=== PATIENT | female | born 1960 | race Caucasian/White ===

== ENCOUNTER 2016-05-30 17:37 | Emergency (ER) | payer SELFPAY ==
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
--- NOTE | 2016-05-30 18:42 | ED ORDER SUMMARY ---
..... Patient: BALDEV CANCINO OrderSheet [facility] VisitID: [id number] [address] [place] [address] 55y, F Registration Date/Time: 05/30/2016 ORDER SHEET Weight: 49.8 kg (stated) Allergies: Reglan, Toradol, Zofran GENERAL ORDERS: UA-Culture if indicated Urgent (18:04 05/30/2016 EKoroleva P.A.-C) (Ack 18:10 LTapper) (18:15 KWilliams R.N.) MEDICATION ORDERS: Ciprofloxacin PO 500 mg (NOW) (18:39 05/30/2016 EKoroleva P.A.-C) (18:46 KWilliams R.N.) Percocet PO 5/325 mg (HIGH ALERT MEDICATION, NOW) (18:40 05/30/2016 EKoroleva P.A.-C) (18:47 KWilliams R.N.) IV FLUIDS: ORDER SHEET NOTES: [Electronically signed by Cierra Weaver R.N. (19:11 05/30/2016)] [Electronically signed by Gala TarangoARogelio-C (19:24 05/30/2016)] [Electronically locked/signed by Cierra Weaver R.N. (19:11 05/30/2016)]
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
--- NOTE | 2016-05-30 18:42 | ED ORDER SUMMARY ---
..... Patient: BALDEV CANCINO OrderSheet [facility] VisitID: [id number] [address] [place] [address] 55y, F Registration Date/Time: 05/30/2016 ORDER SHEET Weight: 49.8 kg (stated) Allergies: Reglan, Toradol, Zofran GENERAL ORDERS: UA-Culture if indicated Urgent (18:04 05/30/2016 EKoroleva P.A.-C) (Ack 18:10 LTapper) (18:15 KWilliams R.N.) MEDICATION ORDERS: Ciprofloxacin PO 500 mg (NOW) (18:39 05/30/2016 EKoroleva P.A.-C) (18:46 KWilliams R.N.) Percocet PO 5/325 mg (HIGH ALERT MEDICATION, NOW) (18:40 05/30/2016 EKoroleva P.A.-C) (18:47 KWilliams R.N.) IV FLUIDS: ORDER SHEET NOTES: [Electronically signed by Cierra Weaver R.N. (19:11 05/30/2016)] [Electronically signed by Gala TarangoARogelio-C (19:24 05/30/2016)] [Electronically locked/signed by Cierra Weaver R.N. (19:11 05/30/2016)]
--- NOTE | 2016-05-30 18:42 | ED CLINICAL REPORT ---
Clinical Report - Physicians/Mid Levels [facility] [address] [place] [address] 05/30/2016 17:37 Patient: BALDEV CANCINO Time Seen: 18:23 May 30 2016. Arrived- By private vehicle. HISTORY OF PRESENT ILLNESS Chief Complaint: FLANK PAIN. This started just prior to arrival 2 PM and is still present. It is described as located in the right flank. No nausea or vomiting. (noted foul smelling urine in urostomy, as she had such placed due to difficulty voiding in the past, also has had h/o nephrolithiasis. No emsis/ diarrhea. On chorninc pain meds for renal pain. has urology specialist. No recent trauma. No sob/ cough/ chest graham.). REVIEW OF SYSTEMS No constipation, black stools, difficulty with urination, pain with urination or urinary frequency. No headache or blurred vision. All systems otherwise negative, except as recorded above. ADDITIONAL NOTES The nursing notes have been reviewed. PHYSICAL EXAM Vital Signs: 05/30/2016 19:09 BP: 106/54. HR: 63. RR: 17. O2 saturation: 99%. Temp: 97.9 F. Appearance: Alert. ENT: Nose normal. Pharynx normal. Neck: Normal inspection. CVS: Normal heart rate and rhythm. Respiratory: No respiratory distress. Breath sounds normal. No accessory muscle use. Abdomen: Soft and nontender. Bowel sounds normal. No abdominal tenderness. The bowel sounds are not abnormal. (urostomy in place). Back: No CVA tenderness. Neuro: Oriented X 3. No motor deficit. LABS, X-RAYS, AND EKG Laboratory Tests: UA-Culture if indicated: (FRANCISCO: 05/30/2016 18:05) ( MsgRcvd 05/30/2016 18:38) Final results Test Result Flag Units (Reference) URINE COLOR YELLOW URINE APPEARANCE CLEAR URINE GLUCOSE NEGATIVE (NEGATIVE) URINE BILIRUBIN NEGATIVE (NEGATIVE) URINE KETONE NEGATIVE (NEGATIVE) URINE SPECIFIC GRAVITY 1.010 (1.010-1.030) URINE PH 7.0 (5.0-8.0) URINE PROTEIN NEGATIVE (NEGATIVE) URINE UROBILINOGEN 0.2 EU/dL (0.2-1.0) URINE NITRITE POSITIVE (NEGATIVE) URINE BLOOD NEGATIVE (NEGATIVE) URINE LEUK ESTERASE POSITIVE (NEGATIVE) URINE RBC NONE SEEN rbc/hpf (0-1) URINE WBC 10-15 wbc/hpf (0-1) URINE EPITHELIAL CELLS 0-1 EPI/hpf (0-5) URINE BACTERIA MANY (4+) (NONE SEEN) URINE COMMENT CULTURE INDICATED URINE CULTURES ARE SET-UP BASED ON THE FOLLOWING CRITERIA:POSITIVE NITRITEPOSITIVE LEUKOCYTE ESTERASEGREATER THAN 10 WHITE BLOOD CELLSMODERATE (2+) OR GREATER BACTERIA . PROGRESS AND PROCEDURES Course of Care: signs of infection, given pt with urostomy and flank pain will start on cipro. Pt stable Afebrile. Noramcardic, early onset of sx, to be treated with abx. pt with prior use of cipro. Has good f/u. 05/30/2016 19:09 BP: 106/54. HR: 63. RR: 17. O2 saturation: 99%. Temp: 97.9 F. Patient is stable. Physical exam findings are improved. Patient/family counseled. Disposition: Discharged. CLINICAL IMPRESSION Acute pyelonephritis INSTRUCTIONS Drink plenty of fluids. Prescription Medications: Cipro 500 mg: take 1 tab orally every 12 hours for 7 days. No refills. Substitution is permissible. Follow-up: Follow up with a specialist in three days. (Electronically signed by Gala Tarango P.A.-C 05/30/2016 19:24)
--- NOTE | 2016-05-30 18:42 | ED CLINICAL REPORT ---
Clinical Report - Physicians/Mid Levels [facility] [address] [place] [address] 05/30/2016 17:37 Patient: BALDEV CANCINO Time Seen: 18:23 May 30 2016. Arrived- By private vehicle. HISTORY OF PRESENT ILLNESS Chief Complaint: FLANK PAIN. This started just prior to arrival 2 PM and is still present. It is described as located in the right flank. No nausea or vomiting. (noted foul smelling urine in urostomy, as she had such placed due to difficulty voiding in the past, also has had h/o nephrolithiasis. No emsis/ diarrhea. On chorninc pain meds for renal pain. has urology specialist. No recent trauma. No sob/ cough/ chest graham.). REVIEW OF SYSTEMS No constipation, black stools, difficulty with urination, pain with urination or urinary frequency. No headache or blurred vision. All systems otherwise negative, except as recorded above. ADDITIONAL NOTES The nursing notes have been reviewed. PHYSICAL EXAM Vital Signs: 05/30/2016 19:09 BP: 106/54. HR: 63. RR: 17. O2 saturation: 99%. Temp: 97.9 F. Appearance: Alert. ENT: Nose normal. Pharynx normal. Neck: Normal inspection. CVS: Normal heart rate and rhythm. Respiratory: No respiratory distress. Breath sounds normal. No accessory muscle use. Abdomen: Soft and nontender. Bowel sounds normal. No abdominal tenderness. The bowel sounds are not abnormal. (urostomy in place). Back: No CVA tenderness. Neuro: Oriented X 3. No motor deficit. LABS, X-RAYS, AND EKG Laboratory Tests: UA-Culture if indicated: (FRANCISCO: 05/30/2016 18:05) ( MsgRcvd 05/30/2016 18:38) Final results Test Result Flag Units (Reference) URINE COLOR YELLOW URINE APPEARANCE CLEAR URINE GLUCOSE NEGATIVE (NEGATIVE) URINE BILIRUBIN NEGATIVE (NEGATIVE) URINE KETONE NEGATIVE (NEGATIVE) URINE SPECIFIC GRAVITY 1.010 (1.010-1.030) URINE PH 7.0 (5.0-8.0) URINE PROTEIN NEGATIVE (NEGATIVE) URINE UROBILINOGEN 0.2 EU/dL (0.2-1.0) URINE NITRITE POSITIVE (NEGATIVE) URINE BLOOD NEGATIVE (NEGATIVE) URINE LEUK ESTERASE POSITIVE (NEGATIVE) URINE RBC NONE SEEN rbc/hpf (0-1) URINE WBC 10-15 wbc/hpf (0-1) URINE EPITHELIAL CELLS 0-1 EPI/hpf (0-5) URINE BACTERIA MANY (4+) (NONE SEEN) URINE COMMENT CULTURE INDICATED URINE CULTURES ARE SET-UP BASED ON THE FOLLOWING CRITERIA:POSITIVE NITRITEPOSITIVE LEUKOCYTE ESTERASEGREATER THAN 10 WHITE BLOOD CELLSMODERATE (2+) OR GREATER BACTERIA . PROGRESS AND PROCEDURES Course of Care: signs of infection, given pt with urostomy and flank pain will start on cipro. Pt stable Afebrile. Noramcardic, early onset of sx, to be treated with abx. pt with prior use of cipro. Has good f/u. 05/30/2016 19:09 BP: 106/54. HR: 63. RR: 17. O2 saturation: 99%. Temp: 97.9 F. Patient is stable. Physical exam findings are improved. Patient/family counseled. Disposition: Discharged. CLINICAL IMPRESSION Acute pyelonephritis INSTRUCTIONS Drink plenty of fluids. Prescription Medications: Cipro 500 mg: take 1 tab orally every 12 hours for 7 days. No refills. Substitution is permissible. Follow-up: Follow up with a specialist in three days. (Electronically signed by Gala Tarango P.A.-C 05/30/2016 19:24)
--- NOTE | 2016-05-30 19:24 | ED DISCHARGE INSTRUCTIONS ---
Patient: BALDEV CANCINO General Instructions [facility] VisitID: [id number] [place] [address] 55y, F Registration Date/Time: 05/30/2016 Acute pyelonephritis INSTRUCTIONS Drink plenty of fluids. Prescription Medications: Cipro 500 mg: take 1 tab orally every 12 hours for 7 days. No refills. Substitution is permissible. Follow-up: Follow up with a specialist in three days. ADDITIONAL INFORMATION Kidney Infection [Adult, Female] An infection of the kidney is also called "pyelonephritis". It usually starts as a bladder infection ("cystitis") which spreads to the kidneys. Pyelonephritis is more serious than a bladder infection. It can cause severe illness if not treated properly. The usual symptoms include an aching pain in the back, side or lower abdomen. Other symptoms may include fever, chills, nausea, vomiting, an urge to urinate and a burning sensation when passing urine. Home Care: Stay home from work or school. Rest in bed until your fever breaks and you are feeling better. Drink lots of fluid (at least 6-8 glasses a day, unless you must restrict fluids for other medical reasons). This will force the medicine into your urinary system and flush the bacteria out of your body. Avoid sexual intercourse until you have finished all of your medicine and your symptoms have gone away. Avoid caffeine, alcohol and spicy foods which may irritate the kidney and bladder. You may use acetaminophen (Tylenol) or ibuprofen (Motrin, Advil) to control pain, unless another pain medicine was prescribed. [NOTE: If you have chronic liver or kidney disease or ever had a stomach ulcer or GI bleeding, talk with your doctor before using these medicines.] Follow Up with your doctor or as advised by our staff for a repeat urine test in 10 days. This will ensure that your infection is fully cleared. [NOTE: If you had an X-ray or CT scan, it will be reviewed by a specialist. You will be notified of any new findings that may affect your care.] Get Prompt Medical Attention if any of the following occur: Fever over 100.4F (38.0C) after 48 hours of treatment No improvement by the third day of treatment Increasing back or abdominal pain Repeated vomiting or inability to take oral medicine Weakness, dizziness or fainting Ciprofloxacin Hydrochloride Oral tablet What is this medicine? CIPROFLOXACIN (sip anthony FLOX a sin) is a quinolone antibiotic. It is used to treat certain kinds of bacterial infections. It will not work for colds, flu, or other viral infections. How should I use this medicine? Take this medicine by mouth with a glass of water. Follow the directions on the prescription label. Take your medicine at regular intervals. Do not take your medicine more often than directed. Take all of your medicine as directed even if you think your are better. Do not skip doses or stop your medicine early. You can take this medicine with food or on an empty stomach. It can be taken with a meal that contains dairy or calcium, but do not take it alone with a dairy product, like milk or yogurt or calcium-fortified juice. A special MedGuide will be given to you by the pharmacist with each prescription and refill. Be sure to read this information carefully each time. Talk to your athletic instructor regarding the use of this medicine in children. Special care may be needed. What side effects may I notice from receiving this medicine? Side effects that you should report to your doctor or health client care coordinator as soon as possible: - allergic reactions like skin rash, itching or hives, swelling of the face, lips, or tongue - breathing problems - confusion, nightmares or hallucinations - feeling faint or lightheaded, falls - irregular heartbeat - joint, muscle or tendon pain or swelling - pain or trouble passing urine -persistent headache with or without blurred vision - redness, blistering, peeling or loosening of the skin, including inside the mouth - seizure - unusual pain, numbness, tingling, or weakness Side effects that usually do not require medical attention (report to your doctor or health client care coordinator if they continue or are bothersome): - diarrhea - nausea or stomach upset - white patches or sores in the mouth What may interact with this medicine? Do not take this medicine with any of the following medications: cisapride droperidol terfenadine tizanidine This medicine may also interact with the following medications: antacids caffeine cyclosporin didanosine (ddI) buffered tablets or powder medicines for diabetes medicines for inflammation like ibuprofen, naproxen methotrexate multivitamins omeprazole phenytoin probenecid sucralfate theophylline warfarin What if I miss a dose? If you miss a dose, take it as soon as you can. If it is almost time for your next dose, take only that dose. Do not take double or extra doses. Where should I keep my medicine? Keep out of the reach of children. Store at room temperature below 30 degrees C (86 degrees F). Keep container tightly closed. Throw away any unused medicine after the expiration date. What should I tell my health care provider before I take this medicine? They need to know if you have any of these conditions: -bone problems -cerebral disease -joint problems -irregular heartbeat -kidney disease -liver disease -myasthenia gravis -seizure disorder -tendon problems -an unusual or allergic reaction to ciprofloxacin, other antibiotics or medicines, foods, dyes, or preservatives - or trying to get -breast-feeding What should I watch for while using this medicine? Tell your doctor or health client care coordinator if your symptoms do not improve. Do not treat diarrhea with over the counter products. Contact your doctor if you have diarrhea that lasts more than 2 days or if it is severe and watery. You may get drowsy or dizzy. Do not drive, use machinery, or do anything that needs mental alertness until you know how this medicine affects you. Do not stand or sit up quickly, especially if you are an older patient. This reduces the risk of dizzy or fainting spells. This medicine can make you more sensitive to the sun. Keep out of the sun. If you cannot avoid being in the sun, wear protective clothing and use sunscreen. Do not use sun lamps or tanning beds/booths. Avoid antacids, aluminum, calcium, iron, magnesium, and zinc products for 6 hours before and 2 hours after taking a dose of this medicine. You have been given the following additional information: Pyelonephritis, Female (Adult) Ciprofloxacin Hydrochloride Oral tablet (Electronically signed by Gala Tarango P.A.-C 05/30/2016 19:24)
--- NOTE | 2016-05-30 19:24 | ED MED RECONCILIATION SUMMARY ---
Patient: BALDEV CANCINO Medication Reconciliation Report [facility] VisitID: [id number] [address] [place] [address] 55y, F Registration Date/Time: 05/30/2016 Weight: 49.8 kg Height/Length: 60 in. BMI: 21.4 ALLERGIES: Reglan, Toradol, Zofran The patient's Home Medications are listed below: THE FOLLOWING MEDICATIONS NEED TO BE RECONCILED: MS Contin Oral 30 mg, 2x a day The source(s) of the original Home Medication information: Not obtained. The following Medications were given to the patient in the Emergency Department: Ciprofloxacin [PO] PO 500 mg, administered: 05/30/2016 6:45:00 PM Percocet [PO] PO 1 tab, administered: 05/30/2016 6:45:00 PM The following Medications were prescribed to the patient: Cipro 500 mg: take 1 tab orally every 12 hours for 7 days. No refills. Substitution is permissible. -- Gala Tarango, PRogelioASofieC
--- NOTE | 2016-05-30 19:24 | ED DISCHARGE INSTRUCTIONS ---
Patient: BALDEV CANCINO General Instructions [facility] VisitID: [id number] [place] [address] 55y, F Registration Date/Time: 05/30/2016 Acute pyelonephritis INSTRUCTIONS Drink plenty of fluids. Prescription Medications: Cipro 500 mg: take 1 tab orally every 12 hours for 7 days. No refills. Substitution is permissible. Follow-up: Follow up with a specialist in three days. ADDITIONAL INFORMATION Kidney Infection [Adult, Female] An infection of the kidney is also called "pyelonephritis". It usually starts as a bladder infection ("cystitis") which spreads to the kidneys. Pyelonephritis is more serious than a bladder infection. It can cause severe illness if not treated properly. The usual symptoms include an aching pain in the back, side or lower abdomen. Other symptoms may include fever, chills, nausea, vomiting, an urge to urinate and a burning sensation when passing urine. Home Care: Stay home from work or school. Rest in bed until your fever breaks and you are feeling better. Drink lots of fluid (at least 6-8 glasses a day, unless you must restrict fluids for other medical reasons). This will force the medicine into your urinary system and flush the bacteria out of your body. Avoid sexual intercourse until you have finished all of your medicine and your symptoms have gone away. Avoid caffeine, alcohol and spicy foods which may irritate the kidney and bladder. You may use acetaminophen (Tylenol) or ibuprofen (Motrin, Advil) to control pain, unless another pain medicine was prescribed. [NOTE: If you have chronic liver or kidney disease or ever had a stomach ulcer or GI bleeding, talk with your doctor before using these medicines.] Follow Up with your doctor or as advised by our staff for a repeat urine test in 10 days. This will ensure that your infection is fully cleared. [NOTE: If you had an X-ray or CT scan, it will be reviewed by a specialist. You will be notified of any new findings that may affect your care.] Get Prompt Medical Attention if any of the following occur: Fever over 100.4F (38.0C) after 48 hours of treatment No improvement by the third day of treatment Increasing back or abdominal pain Repeated vomiting or inability to take oral medicine Weakness, dizziness or fainting Ciprofloxacin Hydrochloride Oral tablet What is this medicine? CIPROFLOXACIN (sip anthony FLOX a sin) is a quinolone antibiotic. It is used to treat certain kinds of bacterial infections. It will not work for colds, flu, or other viral infections. How should I use this medicine? Take this medicine by mouth with a glass of water. Follow the directions on the prescription label. Take your medicine at regular intervals. Do not take your medicine more often than directed. Take all of your medicine as directed even if you think your are better. Do not skip doses or stop your medicine early. You can take this medicine with food or on an empty stomach. It can be taken with a meal that contains dairy or calcium, but do not take it alone with a dairy product, like milk or yogurt or calcium-fortified juice. A special MedGuide will be given to you by the pharmacist with each prescription and refill. Be sure to read this information carefully each time. Talk to your wholesale parts salesperson regarding the use of this medicine in children. Special care may be needed. What side effects may I notice from receiving this medicine? Side effects that you should report to your doctor or health care tech as soon as possible: - allergic reactions like skin rash, itching or hives, swelling of the face, lips, or tongue - breathing problems - confusion, nightmares or hallucinations - feeling faint or lightheaded, falls - irregular heartbeat - joint, muscle or tendon pain or swelling - pain or trouble passing urine -persistent headache with or without blurred vision - redness, blistering, peeling or loosening of the skin, including inside the mouth - seizure - unusual pain, numbness, tingling, or weakness Side effects that usually do not require medical attention (report to your doctor or health care tech if they continue or are bothersome): - diarrhea - nausea or stomach upset - white patches or sores in the mouth What may interact with this medicine? Do not take this medicine with any of the following medications: cisapride droperidol terfenadine tizanidine This medicine may also interact with the following medications: antacids caffeine cyclosporin didanosine (ddI) buffered tablets or powder medicines for diabetes medicines for inflammation like ibuprofen, naproxen methotrexate multivitamins omeprazole phenytoin probenecid sucralfate theophylline warfarin What if I miss a dose? If you miss a dose, take it as soon as you can. If it is almost time for your next dose, take only that dose. Do not take double or extra doses. Where should I keep my medicine? Keep out of the reach of children. Store at room temperature below 30 degrees C (86 degrees F). Keep container tightly closed. Throw away any unused medicine after the expiration date. What should I tell my health care provider before I take this medicine? They need to know if you have any of these conditions: -bone problems -cerebral disease -joint problems -irregular heartbeat -kidney disease -liver disease -myasthenia gravis -seizure disorder -tendon problems -an unusual or allergic reaction to ciprofloxacin, other antibiotics or medicines, foods, dyes, or preservatives - or trying to get -breast-feeding What should I watch for while using this medicine? Tell your doctor or health care tech if your symptoms do not improve. Do not treat diarrhea with over the counter products. Contact your doctor if you have diarrhea that lasts more than 2 days or if it is severe and watery. You may get drowsy or dizzy. Do not drive, use machinery, or do anything that needs mental alertness until you know how this medicine affects you. Do not stand or sit up quickly, especially if you are an older patient. This reduces the risk of dizzy or fainting spells. This medicine can make you more sensitive to the sun. Keep out of the sun. If you cannot avoid being in the sun, wear protective clothing and use sunscreen. Do not use sun lamps or tanning beds/booths. Avoid antacids, aluminum, calcium, iron, magnesium, and zinc products for 6 hours before and 2 hours after taking a dose of this medicine. You have been given the following additional information: Pyelonephritis, Female (Adult) Ciprofloxacin Hydrochloride Oral tablet (Electronically signed by Gala Tarango P.A.-C 05/30/2016 19:24)
--- NOTE | 2016-05-30 19:24 | ED MAR SUMMARY ---
..... Medication Administration Record [facility] [address] [place] [address] Patient: BALDEV CANCINO Visit ID: [id number] 55y, F Weight: 49.8 kg Height/Length: 60 in BMI: 21.4 ALLERGIES: Reglan, Toradol, Zofran Given 18:45 05/30/2016 Cierra Weaver R.N. Medication Administered: CIPROFLOXACIN [PO] (CIPROFLOXACIN), Dose: 500 mg Tablets PO. Medication Ordered: Ciprofloxacin PO 500 mg (NOW). Given 18:45 05/30/2016 Cierra Weaver R.N. Medication Administered: PERCOCET [PO] (OXYCODONE-ACETAMINOPHEN), Dose: 1 tab 5/325 mg Tablets PO. Medication Ordered: Percocet PO 5/325 mg (HIGH ALERT MEDICATION, NOW).
--- NOTE | 2016-05-30 19:24 | ED MED RECONCILIATION SUMMARY ---
Patient: BALDEV CANCINO Medication Reconciliation Report [facility] VisitID: [id number] [address] [place] [address] 55y, F Registration Date/Time: 05/30/2016 Weight: 49.8 kg Height/Length: 60 in. BMI: 21.4 ALLERGIES: Reglan, Toradol, Zofran The patient's Home Medications are listed below: THE FOLLOWING MEDICATIONS NEED TO BE RECONCILED: MS Contin Oral 30 mg, 2x a day The source(s) of the original Home Medication information: Not obtained. The following Medications were given to the patient in the Emergency Department: Ciprofloxacin [PO] PO 500 mg, administered: 05/30/2016 6:45:00 PM Percocet [PO] PO 1 tab, administered: 05/30/2016 6:45:00 PM The following Medications were prescribed to the patient: Cipro 500 mg: take 1 tab orally every 12 hours for 7 days. No refills. Substitution is permissible. -- Gala Tarango, PRogelioASofieC
--- NOTE | 2016-05-30 19:24 | ED MAR SUMMARY ---
..... Medication Administration Record [facility] [address] [place] [address] Patient: BALDEV CANCINO Visit ID: [id number] 55y, F Weight: 49.8 kg Height/Length: 60 in BMI: 21.4 ALLERGIES: Reglan, Toradol, Zofran Given 18:45 05/30/2016 Cierra Weaver R.N. Medication Administered: CIPROFLOXACIN [PO] (CIPROFLOXACIN), Dose: 500 mg Tablets PO. Medication Ordered: Ciprofloxacin PO 500 mg (NOW). Given 18:45 05/30/2016 Cierra Weaver R.N. Medication Administered: PERCOCET [PO] (OXYCODONE-ACETAMINOPHEN), Dose: 1 tab 5/325 mg Tablets PO. Medication Ordered: Percocet PO 5/325 mg (HIGH ALERT MEDICATION, NOW).
== END 2016-05-30 18:59 | disposition home or self-care (01) ==
LOC: ED SRH 17:37
DX: N10 Acute pyelonephritis (principal); Z93.6 Other artificial openings of urinary tract status; Z88.8 Allergy status to other drugs, medicaments and biological substances
CPT/HCPCS: 90004; 90148; 90469

== ENCOUNTER 2016-06-22 12:18 | Emergency (ER) | payer SELFPAY ==
--- NOTE | 2016-06-22 13:39 | DIAGNOSTIC IMAGING REPORT ---
PROCEDURE: XR LUMBAR SPINE 2 OR 3 VIEWS INDICATION: LOWER BACK PAIN TECHNIQUE: Three views. COMPARISON: Abdominal CT 07/04/2015 FINDINGS: Osseous structures and disc spaces are normal. No evidence of an acute process or fracture. IMPRESSION: 1. Negative lumbar spine. 2. Results were called to Dr. La at 01:35 Pm
--- NOTE | 2016-06-22 15:57 | ED NURSING NOTES ---
Clinical Report - Nurses [facility] [address] [place] [address] 06/22/2016 12:20 Patient: BALDEV CANCINO TRIAGE Triage time 12:28. Acuity: LEVEL 3. Chief Complaint: BACK PAIN. Alert. No acute distress. ( Pt. states she was pushing sheets under the her mattress when she felt a "pop" noise and then severe pain. Pt said, "I couldn't seen and everything turned white," after she heard the pop in her back.). SEPSIS SCREEN: Sepsis Screen. Negative (no infection suspected/documented). LIBAN COMA SCORE: [place] Coma Scale: 15- eyes open spontaneously (4); best verbal response- oriented x 4 (5); best motor response- obeys commands (6). --12:34 Sarah Gilman R.N. 12:28 06/22/16. BP: 144/66. HR: 73. RR: 22. O2 saturation: 99%. Temp: 98.7 F. Pain level now 10/10. --12:34 Sarah Gilman R.N. Weight: 49.8 kg stated. Height/Length: 60 inches Per Patient. BMI: 21.4. --12:29 Sarah Gilman R.N. Medications Morphine 3mg x2 daily. --12:30 Sarah Gilman R.N. Vitamins/Minerals Oral. --12:30 Sarah Gilman R.N. Allergies Anti nausea medications. --12:30 Sarah Gilman R.N. History Arrived by private vehicle. Historian: patient. Accompanied by friend. Primary physician (Dr. Dan). This started today. No history of recent trauma. Occurred at home. Treatment EDGE STRIPPER: None. PAST MEDICAL HX: Immunizations: up-to-date. SOCIAL HX: Never smoker. No alcohol use or drug use. No infectious disease exposure. ABUSE ASSESSMENT: No report of abuse. NUTRITIONAL RISK ASSESSMENT: The nutritional risk assessment revealed no deficiencies. FUNCTIONAL ASSESSMENT: Functional assessment: no impairments noted. LEARNING NEEDS ASSESSMENT: The learning needs assessment revealed no barriers. --12:34 Sarah Gilman R.N. PROBLEMS: Chronic Kidney Pain. Sprain. Renal Colic. Cystitis. Nephropathy. Pyelonephritis. Celiac Disease. Urinary Retention. Hypokalemia. Hypomagnesemia. Abdominal Pain. UTI - Urinary Tract Infection. --12:32 Sarah Gilman R.N. ADDITIONAL SURGERIES: Appendectomy. Cholecystectomy. Colon resection. Finger surgeries.. Hernia Repair. Hysterectomy. Oophorectomy. Salpingectomy. Urostomy. --12:32 Sarah Gilman R.N. Interventions ID band on patient. Transported via wheelchair. --12:34 Sarah Gilman R.N. PHYSICAL ASSESSMENT Ambulatory to room. GENERAL / NEURO / PSYCH: Alert. Appears in no acute distress. RESPIRATORY: Respirations not labored. CVS: Capillary refill less than 2 seconds. BACK: Soft tissue tenderness in the right lower lumbar paraspinous region. --12:35 Sarah Gilman R.N. ( CMS WNL in b/l LE. Pain when ambulating.). --12:39 Sarah Gilman R.N. NURSING PROGRESS NOTES Cold pack applied. Head of bed elevated. Two patient identifiers checked. Call light placed in reach. Side rails up x 2. Bed placed in lowest position. Brakes of bed on. Patient ready for evaluation- chart flagged. --12:35 Sarah Gilman R.N. Patient transported to radiology by stretcher with tech. --13:27 Sarah Gilman R.N. 13:35 06/22/2016 Percocet (Oxycodone-Acetaminophen) PO 5/325 mg Tablets 1 tab given. Allergies verified, confirmed 5 rights and sedative warning given to the patient. --13:39 Sarah Gilman R.N. 13:35 06/22/2016 Phenergan (Promethazine HCl) PO 25 mg given. Allergies verified, confirmed 5 rights and sedative warning given to the patient. --13:39 Sarah Gilman R.N. 13:35 06/22/2016 Cyclobenzaprine PO 10 mg given. Allergies verified, confirmed 5 rights and sedative warning given to the patient. --13:39 Sarah Gilman R.N. 13:39 06/22/2016 Toradol (Ketorolac Tromethamine) IM 60 mg given. Given in the right gluteus sandi. Allergies verified and confirmed 5 rights. --13:39 Sarah Gilman R.N. 14:00 06/22/2016 Toradol IM Response: no adverse reaction the patient feels the same. --14:30 Sarah Gilman R.N. 14:38 06/22/2016 Morphine (Morphine Sulfate (PF)) IM 8 mg given. Given in the right gluteus sandi. Allergies verified, confirmed 5 rights and sedative warning given to the patient. --14:38 Sarah Gilman R.N. 14:38 06/22/16. BP: 113/57. HR: 63. RR: 16. O2 saturation: 98%. Pain level now 12/08. --14:40 Sarah Gilman R.N. 15:09 06/22/16. Care transferred and report received. --15:09 Crista Pimentel R.N. 15:20 06/22/16. BP: 119/68. HR: 56. RR: 16. O2 saturation: 100%. Temp: deferred. Pain level now: 08/08. Additional comments: First contact with pt. Pt resting quietly, states pain is better. family at bedside. --15:47 Crista Pimentel R.N. DISPOSITION / DISCHARGE 16:10. Condition at departure: improved and stable. No learning barriers present. Discharge instructions provided and reviewed with the patient. Reviewed medication(s) (PERCOCET). Patient and label cutter verbalized understanding. Written instructions provided in Polish. The patient was discharged home and accompanied by label cutter. She left the Emergency Department ambulatory and via private vehicle. [place] driving. --16:42 Crista Pimentel R.N. 16:10 06/22/16. BP: 116/64. HR: 62. RR: 18. O2 saturation: 97% on room air. Temp: deferred. Pain level now: 08/08. --16:42 Cirsta Pimentel R.N. Locked/Released at 06/22/2016 16:43 by Crista Pimentel R.N.
--- NOTE | 2016-06-22 15:57 | ED CLINICAL REPORT ---
Clinical Report - Physicians/Mid Levels [facility] [address] [place] [address] 06/22/2016 12:20 Patient: BALDEV CANCINO Arrived- By private vehicle. Historian- patient. HISTORY OF PRESENT ILLNESS Chief Complaint: BACK PAIN. It is described as being severe and radiating (right posterior thigh). The quality is noted to be sharp and aching. Onset was today and it is still present (staying the same). It was abrupt in onset and has been constant but is not gone now. No bladder dysfunction, bowel dysfunction, sensory loss or motor loss. Additional history - Patient states she had a history of a bulging disc. no fever, hx of IV drug use, or saddle anesthesia. Patient notes the possibility of an injury but denies injury to the head or neck. Mechanism of injury- (pushing a mattress cover on the bed). (home). No other injury. Similar symptoms previously: None. Recent medical care: Not recently seen/assessed. REVIEW OF SYSTEMS No fever, difficulty with urination, skin rash, difficulty breathing or chest pain. No abdominal pain. All systems otherwise negative, except as recorded above. PAST HISTORY See nurses notes. SOCIAL HISTORY Never smoker. No alcohol use or drug use. No recent travel. Is a local resident. ADDITIONAL NOTES The nursing notes have been reviewed. PHYSICAL EXAM Vital Signs: 06/22/2016 12:28 BP: 144/66. HR: 73. RR: 22. O2 saturation: 99%. Temp: 98.7 F. Hypertensive. Oxygen saturation normal. Appearance: Alert. No acute distress. HEENT: Normal external inspection. Eyes: Pupils equal, round and reactive to light. ENT: Ears normal. Pharynx normal. Neck: Normal inspection. Neck nontender. Painless ROM. CVS: Heart sounds normal. Pulses normal. Respiratory: No respiratory distress. Breath sounds normal. No rales, wheezes or rhonchi. Abdomen: No visible injury. Soft and nontender. Bowel sounds normal. No mass. Back: Normal inspection. (lower back paraspinal muscle tenderness. no midline tenderess. no step offs. no crepitus.). Skin: Skin warm and dry. Normal skin color. No rash. Normal skin turgor. Extremities: Extremities exhibit normal ROM. Extremities nontender. Neuro: Oriented X 3. Mood/affect normal. No motor deficit. No sensory deficit. LABS, X-RAYS, AND EKG LS-Spine X-rays: (PROCEDURE: XR LUMBAR SPINE 2 OR 3 VIEWS INDICATION: LOWER BACK PAIN TECHNIQUE: Three views. COMPARISON: Abdominal CT 07/04/2015 FINDINGS: Osseous structures and disc spaces are normal. No evidence of an acute process or fracture. IMPRESSION: 1. Negative lumbar spine.). Views: AP, lateral and obliques. The X-rays were independently viewed by me, interpreted by the radiologist and discussed with the radiologist. PROGRESS AND PROCEDURES Course of Care: The patient is a pleasant 55 yo female presenting for nausea and back pain. Based on the patient's examination and history, patient has no red flags requiring imaging at this time EXCEPT age. The patient will be managed conservatively at this time with nonsteroidal anti-inflammatory medications. Plain films of back ordered. Patient had driven here to the emergency department. Nonsedating medications offered. Patient was agreeable to the treatment and plan. Patient had a some nausea after medications. Pain medication provided. Patient reports slight improvement with the discomfort. Patient continues to be neurovascularly intact. Had long discussion with patient in regards to back pain. Recommended patient follow up with her primary care doctor for further evaluation and management of the back pain. I discussed the patient workup, diagnosis, home care, follow-up, and return precautions. All questions answered. The patient expressed understanding of these instructions and was agreeable to them. Do not feel patient has cauda equina syndrome, conus medullaris syndrome, or paraspinal infection. Did not feel this is atypical presentation for aortic dissection or appendicitis. Patient is nontoxic and in no acute distress. Did not feel patient is being admitted to the hospital or require further emergency department workup/evaluation. Disposition: Discharged. Condition: good. CLINICAL IMPRESSION 06/22/2016 12:28 BP: 144/66. HR: 73. RR: 22. O2 saturation: 99%. Temp: 98.7 F. Blood pressure normal. Oxygen saturation normal. Acute nontraumatic lumbar back pain. INSTRUCTIONS Warnings: GENERAL WARNINGS: Return or contact your physician immediately if your condition worsens or changes unexpectedly, if not improving as expected, or if other problems arise. SPECIFICALLY, return if you develop weakness, numbness, tingling, pain or incontinence. Your Current Medications: CONTINUE TAKING THE FOLLOWING MEDICATIONS: Morphine 3mg x2 daily*. Vitamins/Minerals Oral. Prescription Medications: Percocet 5 mg/325 mg: take 1-2 tablets orally every 6 hours as needed for pain. Dispense twenty (20). No refill. Substitution is permissible. Follow-up: Return to the emergency department as needed. Follow up with your doctor in three days. Reason for referral: recheck today's concerns. Summary of care provided to patient via paper. Screening today revealed the patient's blood pressure to be in the normal range. The patient should follow up with a primary care provider for blood pressure management. Understanding of the discharge instructions verbalized by patient. (Electronically signed by Alberto La Dr. 06/29/2016 12:29)
--- NOTE | 2016-06-22 15:57 | ED ORDER SUMMARY ---
..... Patient: BALDEV CANCINO OrderSheet [facility] VisitID: [id number] [address] [place] [address] 55y, F Registration Date/Time: 06/22/2016 ORDER SHEET Weight: 49.8 kg (stated) Allergies: Anti nausea medications GENERAL ORDERS: Lumbar Spine 2 or 3V Urgent (13:18 06/22/2016 Nuno Holcomb) (Ack 13:20 Ashley) (13:39 SReitz R.N.) MEDICATION ORDERS: Percocet PO 5/325 mg (HIGH ALERT MEDICATION, NOW) (13:19 06/22/2016 Nuno Holcomb) (Ack 13:28 SReitz R.N.) (13:39 SReitz R.N.) Toradol IM 60 mg (NOW) (13:19 06/22/2016 Nuno Holcomb) (Ack 13:28 SReitz R.N.) (13:39 SReitz R.N.) Phenergan PO 25 mg (HIGH ALERT MEDICATION, NOW) (13:19 06/22/2016 Nuno Holcomb) (Ack 13:28 SReitz R.N.) (13:39 SReitz R.N.) Cyclobenzaprine PO 10 mg (NOW) (13:19 06/22/2016 Nuno Holcomb) (Ack 13:28 SReitz R.N.) (13:39 SReitz R.N.) Morphine IM 8 mg (HIGH ALERT MEDICATION, NOW) (14:32 06/22/2016 Nuno Holcomb) (Ack 14:33 SReitz R.N.) (14:38 SReitz R.N.) IV FLUIDS: ORDER SHEET NOTES: [Electronically signed by Crista Pimentel R.N. (16:43 06/22/2016)] [Electronically signed by Alberto La Dr. (12:29 06/29/2016)] [Electronically locked/signed by Crista Pimentel R.N. (16:43 06/22/2016)]
--- NOTE | 2016-06-22 15:57 | ED NURSING NOTES ---
Clinical Report - Nurses [facility] [address] [place] [address] 06/22/2016 12:20 Patient: BALDEV CANCINO TRIAGE Triage time 12:28. Acuity: LEVEL 3. Chief Complaint: BACK PAIN. Alert. No acute distress. ( Pt. states she was pushing sheets under the her mattress when she felt a "pop" noise and then severe pain. Pt said, "I couldn't seen and everything turned white," after she heard the pop in her back.). SEPSIS SCREEN: Sepsis Screen. Negative (no infection suspected/documented). LIBAN COMA SCORE: [place] Coma Scale: 15- eyes open spontaneously (4); best verbal response- oriented x 4 (5); best motor response- obeys commands (6). --12:34 Sarah Gilman R.N. 12:28 06/22/16. BP: 144/66. HR: 73. RR: 22. O2 saturation: 99%. Temp: 98.7 F. Pain level now 10/10. --12:34 Sarah Gilman R.N. Weight: 49.8 kg stated. Height/Length: 60 inches Per Patient. BMI: 21.4. --12:29 Sarah Gilman R.N. Medications Morphine 3mg x2 daily. --12:30 Sarah Gilman R.N. Vitamins/Minerals Oral. --12:30 Sarah Gilman R.N. Allergies Anti nausea medications. --12:30 Sarah Gilman R.N. History Arrived by private vehicle. Historian: patient. Accompanied by friend. Primary physician (Dr. Dan). This started today. No history of recent trauma. Occurred at home. 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 PAST MEDICAL HX: Immunizations: up-to-date. SOCIAL HX: Never smoker. No alcohol use or drug use. No infectious disease exposure. ABUSE ASSESSMENT: No report of abuse. NUTRITIONAL RISK ASSESSMENT: The nutritional risk assessment revealed no deficiencies. FUNCTIONAL ASSESSMENT: Functional assessment: no impairments noted. LEARNING NEEDS ASSESSMENT: The learning needs assessment revealed no barriers. --12:34 Sarah Gilman R.N. PROBLEMS: Chronic Kidney Pain. Sprain. Renal Colic. Cystitis. Nephropathy. Pyelonephritis. Celiac Disease. Urinary Retention. Hypokalemia. Hypomagnesemia. Abdominal Pain. UTI - Urinary Tract Infection. --12:32 Sarah Gilman R.N. ADDITIONAL SURGERIES: Appendectomy. Cholecystectomy. Colon resection. Finger surgeries.. Hernia Repair. Hysterectomy. Oophorectomy. Salpingectomy. Urostomy. --12:32 Sarah Gilman R.N. Interventions ID band on patient. Transported via wheelchair. --12:34 Sarah Gilman R.N. PHYSICAL ASSESSMENT Ambulatory to room. GENERAL / NEURO / PSYCH: Alert. Appears in no acute distress. RESPIRATORY: Respirations not labored. CVS: Capillary refill less than 2 seconds. BACK: Soft tissue tenderness in the right lower lumbar paraspinous region. --12:35 Sarah Gilman R.N. ( CMS WNL in b/l LE. Pain when ambulating.). --12:39 Sarah Gilman R.N. NURSING PROGRESS NOTES Cold pack applied. Head of bed elevated. Two patient identifiers checked. Call light placed in reach. Side rails up x 2. Bed placed in lowest position. Brakes of bed on. Patient ready for evaluation- chart flagged. --12:35 Sarah Gilman R.N. Patient transported to radiology by stretcher with tech. --13:27 Sarah Gilman R.N. 13:35 06/22/2016 Percocet (Oxycodone-Acetaminophen) PO 5/325 mg Tablets 1 tab given. Allergies verified, confirmed 5 rights and sedative warning given to the patient. --13:39 Sarah Gilman R.N. 13:35 06/22/2016 Phenergan (Promethazine HCl) PO 25 mg given. Allergies verified, confirmed 5 rights and sedative warning given to the patient. --13:39 Sarah Gilman R.N. 13:35 06/22/2016 Cyclobenzaprine PO 10 mg given. Allergies verified, confirmed 5 rights and sedative warning given to the patient. --13:39 Sarah Gilman R.N. 13:39 06/22/2016 Toradol (Ketorolac Tromethamine) IM 60 mg given. Given in the right gluteus sandi. Allergies verified and confirmed 5 rights. --13:39 Sarah Gilman R.N. 14:00 06/22/2016 Toradol IM Response: no adverse reaction the patient feels the same. --14:30 Sarah Gilman R.N. 14:38 06/22/2016 Morphine (Morphine Sulfate (PF)) IM 8 mg given. Given in the right gluteus sandi. Allergies verified, confirmed 5 rights and sedative warning given to the patient. --14:38 Sarah Gilman R.N. 14:38 06/22/16. BP: 113/57. HR: 63. RR: 16. O2 saturation: 98%. Pain level now 12/08. --14:40 Sarah Gilman R.N. 15:09 06/22/16. Care transferred and report received. --15:09 Crista Pimentel R.N. 15:20 06/22/16. BP: 119/68. HR: 56. RR: 16. O2 saturation: 100%. Temp: deferred. Pain level now: 08/08. Additional comments: First contact with pt. Pt resting quietly, states pain is better. family at bedside. --15:47 Crista Pimentel R.N. DISPOSITION / DISCHARGE 16:10. Condition at departure: improved and stable. No learning barriers present. Discharge instructions provided and reviewed with the patient. Reviewed medication(s) (PERCOCET). Patient and retail performance specialist verbalized understanding. Written instructions provided in Luxembourgish. The patient was discharged home and accompanied by retail performance specialist. She left the Emergency Department ambulatory and via private vehicle. Staff Air Tactical Officer driving. --16:42 Crista Pimentel R.N. 16:10 06/22/16. BP: 116/64. HR: 62. RR: 18. O2 saturation: 97% on room air. Temp: deferred. Pain level now: 08/08. --16:42 Crista Pimentel R.N. Locked/Released at 06/22/2016 16:43 by Crista Pimentel R.N.
--- NOTE | 2016-06-22 15:57 | ED ORDER SUMMARY ---
..... Patient: BALDEV CANCINO OrderSheet [facility] VisitID: [id number] [address] [place] [address] 55y, F Registration Date/Time: 06/22/2016 ORDER SHEET Weight: 49.8 kg (stated) Allergies: Anti nausea medications GENERAL ORDERS: Lumbar Spine 2 or 3V Urgent (13:18 06/22/2016 Nuno Holcomb) (Ack 13:20 Ashley) (13:39 SReitz R.N.) MEDICATION ORDERS: Percocet PO 5/325 mg (HIGH ALERT MEDICATION, NOW) (13:19 06/22/2016 Nuno Holcomb) (Ack 13:28 SReitz R.N.) (13:39 SReitz R.N.) Toradol IM 60 mg (NOW) (13:19 06/22/2016 Nuno Holcomb) (Ack 13:28 SReitz R.N.) (13:39 SReitz R.N.) Phenergan PO 25 mg (HIGH ALERT MEDICATION, NOW) (13:19 06/22/2016 Nuno Holcomb) (Ack 13:28 SReitz R.N.) (13:39 SReitz R.N.) Cyclobenzaprine PO 10 mg (NOW) (13:19 06/22/2016 Nuno Holcomb) (Ack 13:28 SReitz R.N.) (13:39 SReitz R.N.) Morphine IM 8 mg (HIGH ALERT MEDICATION, NOW) (14:32 06/22/2016 Nuno Holcomb) (Ack 14:33 SReitz R.N.) (14:38 SReitz R.N.) IV FLUIDS: ORDER SHEET NOTES: [Electronically signed by Crista Pimentel R.N. (16:43 06/22/2016)] [Electronically signed by Alberto La Dr. (12:29 06/29/2016)] [Electronically locked/signed by Crista Pimentel R.N. (16:43 06/22/2016)]
--- NOTE | 2016-06-29 12:29 | ED MAR SUMMARY ---
..... Medication Administration Record [facility] [address] [place] [address] Patient: BALDEV CANCINO Visit ID: [id number] 55y, F Weight: 49.8 kg Height/Length: 60 in BMI: 21.4 ALLERGIES: Anti nausea medications Given 13:35 06/22/2016 Sarah Gilman R.N. Medication Administered: PERCOCET [PO] (OXYCODONE-ACETAMINOPHEN), Dose: 1 tab 5/325 mg Tablets PO. Medication Ordered: Percocet PO 5/325 mg (HIGH ALERT MEDICATION, NOW). Given 13:06/22/2016 Sarah Gilman R.N. Medication Administered: PHENERGAN [PO] (PROMETHAZINE HCL), Dose: 25 mg PO. Medication Ordered: Phenergan PO 25 mg (HIGH ALERT MEDICATION, NOW). Given 13:35 06/22/2016 Sarah Gilman R.N. Medication Administered: CYCLOBENZAPRINE [PO], Dose: 10 mg PO. Medication Ordered: Cyclobenzaprine PO 10 mg (NOW). Given 13:39 06/22/2016 Sarah Gilman R.N. Medication Administered: TORADOL [IM] (KETOROLAC TROMETHAMINE), Dose: 60 mg IM. Medication Ordered: Toradol IM 60 mg (NOW). Given 14:38 06/22/2016 Sarah Gilman R.N. Medication Administered: MORPHINE [IM] (MORPHINE SULFATE (PF)), Dose: 8 mg IM. Medication Ordered: Morphine IM 8 mg (HIGH ALERT MEDICATION, NOW).
--- NOTE | 2016-06-29 12:29 | ED MED RECONCILIATION SUMMARY ---
Patient: BALDEV CANCINO Medication Reconciliation Report [facility] VisitID: [id number] [address] [place] [address] 55y, F Registration Date/Time: 06/22/2016 Weight: 49.8 kg Height/Length: 60 in. BMI: 21.4 ALLERGIES: Anti nausea medications The patient's Home Medications are listed below: CONTINUE TAKING THE FOLLOWING MEDICATIONS: Morphine 3mg x2 daily Vitamins/Minerals Oral The source(s) of the original Home Medication information: Not obtained. The following Medications were given to the patient in the Emergency Department: Percocet [PO] PO 1 tab, administered: 06/22/2016 1:35:00 PM Phenergan [PO] PO 25 mg, administered: 06/22/2016 1:35:00 PM Cyclobenzaprine [PO] PO 10 mg, administered: 06/22/2016 1:35:00 PM Toradol [IM] IM 60 mg, administered: 06/22/2016 1:39:00 PM Morphine [IM] IM 8 mg, administered: 06/22/2016 2:38:00 PM The following Medications were prescribed to the patient: Percocet 5 mg/325 mg: take 1-2 tablets orally every 6 hours as needed for pain. Dispense twenty (20). No refill. Substitution is permissible. -- Alberto La Dr.
--- NOTE | 2016-06-29 12:29 | ED MED RECONCILIATION SUMMARY ---
Patient: BALDEV CANCINO Medication Reconciliation Report [facility] VisitID: [id number] [address] [place] [address] 55y, F Registration Date/Time: 06/22/2016 Weight: 49.8 kg Height/Length: 60 in. BMI: 21.4 ALLERGIES: Anti nausea medications The patient's Home Medications are listed below: CONTINUE TAKING THE FOLLOWING MEDICATIONS: Morphine 3mg x2 daily Vitamins/Minerals Oral The source(s) of the original Home Medication information: Not obtained. The following Medications were given to the patient in the Emergency Department: Percocet [PO] PO 1 tab, administered: 06/22/2016 1:35:00 PM Phenergan [PO] PO 25 mg, administered: 06/22/2016 1:35:00 PM Cyclobenzaprine [PO] PO 10 mg, administered: 06/22/2016 1:35:00 PM Toradol [IM] IM 60 mg, administered: 06/22/2016 1:39:00 PM Morphine [IM] IM 8 mg, administered: 06/22/2016 2:38:00 PM The following Medications were prescribed to the patient: Percocet 5 mg/325 mg: take 1-2 tablets orally every 6 hours as needed for pain. Dispense twenty (20). No refill. Substitution is permissible. -- Alberto La Dr.
--- NOTE | 2016-06-29 12:29 | ED MAR SUMMARY ---
..... Medication Administration Record [facility] [address] [place] [address] Patient: BALDEV CANCINO Visit ID: [id number] 55y, F Weight: 49.8 kg Height/Length: 60 in BMI: 21.4 ALLERGIES: Anti nausea medications Given 13:35 06/22/2016 Sarah Gilman R.N. Medication Administered: PERCOCET [PO] (OXYCODONE-ACETAMINOPHEN), Dose: 1 tab 5/325 mg Tablets PO. Medication Ordered: Percocet PO 5/325 mg (HIGH ALERT MEDICATION, NOW). Given 13:06/22/2016 Sarah Gilman R.N. Medication Administered: PHENERGAN [PO] (PROMETHAZINE HCL), Dose: 25 mg PO. Medication Ordered: Phenergan PO 25 mg (HIGH ALERT MEDICATION, NOW). Given 13:35 06/22/2016 Sarah Gilman R.N. Medication Administered: CYCLOBENZAPRINE [PO], Dose: 10 mg PO. Medication Ordered: Cyclobenzaprine PO 10 mg (NOW). Given 13:39 06/22/2016 Sarah Gilman R.N. Medication Administered: TORADOL [IM] (KETOROLAC TROMETHAMINE), Dose: 60 mg IM. Medication Ordered: Toradol IM 60 mg (NOW). Given 14:38 06/22/2016 Sarah Gilman R.N. Medication Administered: MORPHINE [IM] (MORPHINE SULFATE (PF)), Dose: 8 mg IM. Medication Ordered: Morphine IM 8 mg (HIGH ALERT MEDICATION, NOW).
--- NOTE | 2016-06-29 12:29 | ED DISCHARGE INSTRUCTIONS ---
Patient: BALDEV CANCINO General Instructions [facility] VisitID: [id number] [place] [address] 55y, F Registration Date/Time: 06/22/2016 06/22/2016 12:28 BP: 144/66. HR: 73. RR: 22. O2 saturation: 99%. Temp: 98.7 F. Blood pressure normal. Oxygen saturation normal. Acute nontraumatic lumbar back pain. INSTRUCTIONS Warnings: GENERAL WARNINGS: Return or contact your physician immediately if your condition worsens or changes unexpectedly, if not improving as expected, or if other problems arise. SPECIFICALLY, return if you develop weakness, numbness, tingling, pain or incontinence. Your Current Medications: CONTINUE TAKING THE FOLLOWING MEDICATIONS: Morphine 3mg x2 daily*. Vitamins/Minerals Oral. Prescription Medications: Percocet 5 mg/325 mg: take 1-2 tablets orally every 6 hours as needed for pain. Dispense twenty (20). No refill. Substitution is permissible. Follow-up: Return to the emergency department as needed. Follow up with your doctor in three days. Reason for referral: recheck today's concerns. Summary of care provided to patient via paper. Screening today revealed the patient's blood pressure to be in the normal range. The patient should follow up with a primary care provider for blood pressure management. Understanding of the discharge instructions verbalized by patient. ADDITIONAL INFORMATION Sciatica Sciatica ("Lumbar Radiculopathy") causes a pain that spreads from the lower back down into the buttock, hip and leg. Sometimes leg pain can occur without any back pain. Sciatica is due to irritation or pressure on a spinal nerve as it comes out of the spinal canal. This is most often due to a bulge or rupture of a nearby spinal disk (the cartilage cushion between each spinal bone), which presses on a nearby nerve. Other causes include spinal stenosis (narrowing of the spinal canal) and spasm of the pyriform muscle (a muscle in the buttocks that the sciatic nerve passes through). Sciatica may begin after a sudden twisting/bending force (such as in a car accident), or sometimes after a simple awkward movement. In either case, muscle spasm is commonly present and contributes to the pain. The diagnosis of sciatica is made from the symptoms and physical exam. Unless you had a physical injury (such as a car accident or fall), X-rays are usually not ordered for the initial evaluation of sciatica because the nerves and disks cannot be seen on an x-ray. If signs of a compressed nerve are present (for example, loss of tendon reflex or strength in the leg), an MRI (magnetic resonance imaging) scan will need to be scheduled as an outpatient. Most sciatica (80-90%) gets better with medicine, exercise, physical therapy. If symptoms continue after at least three months of medical treatment, surgery may be considered. Home Care: You may need to stay in bed the first few days. But, as soon as possible, begin sitting or walking to avoid problems with prolonged bed rest. When in bed, try to find a position of comfort. A firm mattress is best. Try lying flat on your back with pillows under your knees. You can also try lying on your side with your knees bent up towards your chest and a pillow between your knees. Avoid prolonged sitting. This puts more stress on the lower back than standing or walking. Some persons find relief with heat (hot shower, hot bath or heating pad) and massage, while others prefer cold packs (crushed or cubed ice in a plastic bag, wrapped in a towel). Try both and use the method that feels best for 20 minutes several times a day. You may use acetaminophen (Tylenol) or ibuprofen (Motrin, Advil) to control pain, unless another pain medicine was prescribed. [ NOTE: If you have chronic liver or kidney disease or ever had a stomach ulcer or GI bleeding, talk with your doctor before using these medicines.] Be aware of safe lifting methods and do not lift anything over 15 pounds until all the pain is gone. Follow Up with your doctor or this facility if your symptoms do not start to improve after one week. Physical therapy or further testing may be needed. [NOTE: If X-rays were taken, they will be reviewed by a radiologist. You will be notified of any new findings that may affect your care.] Get Prompt Medical Attention if any of the following occur: Pain becomes worse, not controlled by the prescribed medicine Weakness or numbness in one or both legs Numbness in the groin, genital area Loss of bowel or bladder control Oxycodone Hydrochloride, Acetaminophen Oral tablet What is this medicine? ACETAMINOPHEN; OXYCODONE (a set a COURTNEY chaparro fen; ox i KOE done) is a pain reliever. It is used to treat mild to moderate pain. How should I use this medicine? Take this medicine by mouth with a full glass of water. Follow the directions on the prescription label. Take your medicine at regular intervals. Do not take your medicine more often than directed. Talk to your pharmacognosist regarding the use of this medicine in children. Special care may be needed. Patients over 65 years old may have a stronger reaction and need a smaller dose. What side effects may I notice from receiving this medicine? Side effects that you should report to your doctor or health urgent care nurse practitioner as soon as possible: allergic reactions like skin rash, itching or hives, swelling of the face, lips, or tongue breathing difficulties, wheezing confusion light headedness or fainting spells severe stomach pain yellowing of the skin or the whites of the eyes Side effects that usually do not require medical attention (report to your doctor or health urgent care nurse practitioner if they continue or are bothersome): dizziness drowsiness nausea vomiting What may interact with this medicine? alcohol antihistamines barbiturates like amobarbital, butalbital, butabarbital, methohexital, pentobarbital, phenobarbital, thiopental, and secobarbital benztropine drugs for bladder problems like solifenacin, trospium, oxybutynin, tolterodine, hyoscyamine, and methscopolamine drugs for breathing problems like ipratropium and tiotropium drugs for certain stomach or intestine problems like propantheline, homatropine methylbromide, glycopyrrolate, atropine, belladonna, and dicyclomine general anesthetics like etomidate, ketamine, nitrous oxide, propofol, desflurane, enflurane, halothane, isoflurane, and sevoflurane medicines for depression, anxiety, or psychotic disturbances medicines for sleep muscle relaxants naltrexone narcotic medicines (opiates) for pain phenothiazines like perphenazine, thioridazine, chlorpromazine, mesoridazine, fluphenazine, prochlorperazine, promazine, and trifluoperazine scopolamine tramadol trihexyphenidyl What if I miss a dose? If you miss a dose, take it as soon as you can. If it is almost time for your next dose, take only that dose. Do not take double or extra doses. Where should I keep my medicine? Keep out of the reach of children. This medicine can be abused. Keep your medicine in a safe place to protect it from theft. Do not share this medicine with anyone. Selling or giving away this medicine is dangerous and against the law. Store at room temperature between 20 and 25 degrees C (68 and 77 degrees F). Keep container tightly closed. Protect from light. This medicine may cause accidental overdose and if it is taken by other adults, children, or pets. Flush any unused medicine down the toilet to reduce the chance of harm. Do not use the medicine after the expiration date. What should I tell my health care provider before I take this medicine? They need to know if you have any of these conditions: brain tumor Crohn's disease, inflammatory bowel disease, or ulcerative colitis drink more than 3 alcohol containing drinks per day drug abuse or addiction head injury heart or circulation problems kidney disease or problems going to the bathroom liver disease lung disease, asthma, or breathing problems an unusual or allergic reaction to acetaminophen, oxycodone, other opioid analgesics, other medicines, foods, dyes, or preservatives or trying to get breast-feeding What should I watch for while using this medicine? Tell your doctor or health urgent care nurse practitioner if your pain does not go away, if it gets worse, or if you have new or a different type of pain. You may develop tolerance to the medicine. Tolerance means that you will need a higher dose of the medication for pain relief. Tolerance is normal and is expected if you take this medicine for a long time. Do not suddenly stop taking your medicine because you may develop a severe reaction. Your body becomes used to the medicine. This does NOT mean you are addicted. Addiction is a behavior related to getting and using a drug for a non-medical reason. If you have pain, you have a medical reason to take pain medicine. Your doctor will tell you how much medicine to take. If your doctor wants you to stop the medicine, the dose will be slowly lowered over time to avoid any side effects. You may get drowsy or dizzy. Do not drive, use machinery, or do anything that needs mental alertness until you know how this medicine affects you. Do not stand or sit up quickly, especially if you are an older patient. This reduces the risk of dizzy or fainting spells. Alcohol may interfere with the effect of this medicine. Avoid alcoholic drinks. There are different types of narcotic medicines (opiates) for pain. If you take more than one type at the same time, you may have more side effects. Give your health care provider a list of all medicines you use. Your doctor will tell you how much medicine to take. Do not take more medicine than directed. Call emergency for help if you have problems breathing. The medicine will cause constipation. Try to have a bowel movement at least every 2 to 3 days. If you do not have a bowel movement for 3 days, call your doctor or health urgent care nurse practitioner. Do not take Tylenol (acetaminophen) or medicines that have acetaminophen with this medicine. Too much acetaminophen can be very dangerous. Many nonprescription medicines contain acetaminophen. Always read the labels carefully to avoid taking more acetaminophen. You have been given the following additional information: Back Pain W/ Sciatica Oxycodone Hydrochloride, Acetaminophen Oral tablet (Electronically signed by Alberto La Dr. 06/29/2016 12:29)
== END 2016-06-22 16:10 | disposition home or self-care (01) ==
LOC: ED SRH 12:18
DX: M54.5 Low back pain (principal); Z88.8 Allergy status to other drugs, medicaments and biological substances